=== PATIENT | female | born 1990 | race American Indian/Alaskan Native ===

== ENCOUNTER 2020-08-15 14:47 | Observation (INO) | payer OTHER ==
[2020-08-15 16:13] LABS: Hemoglobin 11.3 gm/dl (10.1-14.3); Mean Corpuscular HGB Conc 34 % (30-34); Mean Corpuscular Volume 93 fl (79-97); Platelet Count 185 K/mm3 (140-440); Red Blood Count 3.55 M/mm3 (3.65-5.03); Red Cell Distribution Width 14.5 % (13.2-15.2)
[2020-08-15 16:23] LABS: Bilirubin,Urine NEG (Negative); Blood,Urine NEG (Negative); Color,Urine Colorless (Yellow); Protein,Urine <15 mg/dL mg/dL (Negative); Urobilinogen,Urine < 2.0 mg/dL (<2.0)
[2020-08-15 16:24] LABS: Alanine Aminotransferase 21 units/L (7-56); Uric Acid 3.5 mg/dL (3.5-7.6)
[2020-08-15 16:28] LABS: RBC,Urine < 1.0 /HPF (0.0-6.0); WBC,Urine < 1.0 /HPF (0.0-6.0)
[2020-08-15] MEDS ORDERED: SENNOSIDES/DOCUSATE SODIUM 8.6/50 MG TAB PO PRN (17:58)
[2020-08-15] MEDS ORDERED: SODIUM CHLORIDE NASAL SPRAY 44ML NS PRN (17:58)
[2020-08-15] MEDS ORDERED: ACETAMINOPHEN 325 MG TAB PO PRN (17:58)
[2020-08-15] MEDS ORDERED: guaiFENesin DM 200/20 MG ORAL LIQD 10 ML PO PRN (17:58)
[2020-08-15] MEDS ORDERED: ALUM-MAG HYDROXIDE-SIMETHICONE 200-200-20MG/5ML ORAL LIQD 30 ML PO PRN (17:58)
[2020-08-15] MEDS ORDERED: ONDANSETRON 4 MG/2 ML INJ IV PRN (17:58)
[2020-08-15] MEDS ORDERED: MAGNESIUM HYDROXIDE (MOM) ORAL LIQD UDC PO PRN (17:58)
[2020-08-15] MEDS ORDERED: diphenhydrAMINE 25 MG CAP PO PRN (17:58)
[2020-08-15] MEDS ORDERED: SIMETHICONE 80 MG CHEW TAB PO PRN (17:58)
[2020-08-15] MEDS ORDERED: DOCUSATE SODIUM 100 MG CAP PO PRN (17:58)
[2020-08-15] MEDS ORDERED: WITCH HAZEL/ GLYCERIN PAD TP PRN (17:58)
[2020-08-15] MEDS ORDERED: PSEUDOEPHEDRINE 30 MG TAB PO PRN (17:58)
[2020-08-15] MEDS ORDERED: MAGNESIUM SULFATE 4 GM/100 ML BAG IV ONE (18:08)
--- NOTE | 2020-08-15 18:15 | Event Note ---
Date: 08/15/20 29 yo G1 at 25w5d with PNC at [facility] c/b IUGR 1% (seen by [facility] 08/12/20) presenting with COHN x 2 weeks, +2 edema, 7# weight gain in 2 weeks with elevated BPs to 158/83 and 170/100 in clinic. BPs elevated in triage to 160s, now currently in 140-150s. COHN resolved in triage. Resting comfortably. PIH labs wnl. --Admit for OBS --Monitor vitals --Betamethasone q24H x 2 --24H TP --Start labetolol 100mg BID, IV antihypertensive prn severe range BPs --Mag x 24H for neuroprotection --Needs AM [facility] consult --OB sono ordered --Needs NICU consult in indication for delivery
[2020-08-15] MEDS ORDERED: hydrALAZINE 20 MG/1 ML INJ IV PRN (18:19)
[2020-08-15] MEDS ORDERED: BETAMET ACET/BETAMET NA PH 6 MG/ML INJ 5 ML MDV IM SCH (18:30)
[2020-08-15] MEDS ORDERED: MAGNESIUM SULFATE 40GM/1000ML 40 GM/1,000 ML BAG IV SCH (19:00)
[2020-08-15] MEDS: LACTATED RINGERS 1,000 ML IV SCH (19:26)
--- NOTE | 2020-08-15 19:36 | Ultrasound Report ---
ULTRASOUND OBSTETRIC INDICATION / CLINICAL INFORMATION: 25w5d with elevated BPs. Clinical Gestational Age (GA): 25.5 weeks.days TECHNIQUE: Transabdominal. COMPARISON: None available. FINDINGS: There is a single intrauterine . Biparietal Diameter = 6.09 cm = 24.5 weeks.days Head Circumference = 22.78 cm = 24.6 weeks.days Abdominal Circumference = 19.16 cm = 23.6 weeks.days Femur Length = 4.68 cm = 25.6 weeks.days Average Ultrasound Age (AUA) = 24.5 weeks.days Heart Rate: 166 beats per minute. Estimated Weight in grams (if calculated): 721 Placenta: anterior, grade 1 and free of the os. Amniotic Fluid Volume: normal Amniotic Fluid Index (CIERRA) in cm (if calculated): 8.3. IMPRESSION: 1. Single, living intrauterine with estimated sonographic age of 24.5 weeks.days 2. No significant sonographic abnormality. BIOPHYSICAL PROFILE INDICATION: Elevated blood pressure COMPARISON: None FINDINGS: breathing movement: 2/2 movement: 2/2 posture and tone: 2/2 Qualitative amniotic fluid volume: 2/2 IMPRESSION: Total score for biophysical profile is 8/8 heart rate is 166 bpm Signer Name: Burak Peng MD Signed: 08/15/2020 7:31 PM Workstation Name: [employer]
--- NOTE | 2020-08-16 08:10 | History and Physical Report ---
History of Present Illness Date of examination: 08/16/20 Date of admission: 08/15/20 17:58 Chief complaint: "Sent to hosp by my doctor because my b/p is too high" History of present illness: 29 y/o female @ 25.6 wks was sent to [facility] by her provider for an evaluation of elevated b/ps and COHN x 2 wks. Pt denied COHN, LOF,or VB on admission, but admitted to active . She initiated her pnc at [facility] at 17.2 wks. She was being co managed by [facility] r/t an abnormal quad screen for down syndrome and IUGR 1%. The pt refused an amnio and NIPT screening. Neg surg/social/family hx. Pt was admitted to L&D for further monitoring. Labs: A neg HbsAg- neg HIV- neg RPR/VDRL- neg Rubella- I hBG 11.2 Past History Past Medical History: hypertension Past Surgical History: no surgical history Family/Genetic History: none Social history: - Obstetrical History Expected Date of Delivery: 11/23/20 Actual Gestation: 25 Week(s) 6 Day(s) : 1 Para: 0 Medications and Allergies Allergies Allergy/AdvReac Type Severity Reaction Status Date / Time No Known Allergies Allergy Unverified 08/15/20 15:32 Active Meds: Active Medications Acetaminophen (Acetaminophen 325 Mg Tab) 650 mg PO Q4H PRN PRN Reason: Pain MILD(1-3)/Fever >100.5/COHN Last Admin: 08/16/20 06:35 Dose: 650 mg Documented by: Al Hydrox/Mg Hydrox/Simethicone (Alum-Mag Hydroxide-Simethicone [id number]/5ml Oral Liqd 30 Ml) 30 ml PO Q6H PRN PRN Reason: Indigestion Betamethasone Acet/Betameth SodPhos (Betamet Acet/Betamet Na Ph 6 Mg/Ml Inj 5 Ml Mdv) 12 mg IM Q24H MILADY Stop: 08/16/20 18:31 Last Admin: 08/15/20 19:59 Dose: 12 mg Documented by: Diphenhydramine HCl (Diphenhydramine 25 Mg Cap) 25 mg PO Q6H PRN PRN Reason: Itching Docusate Sodium (Docusate Sodium 100 Mg Cap) 100 mg PO Q12H PRN PRN Reason: Constipation Guaifenesin (Guaifenesin Dm 200/20 Mg Oral Liqd 10 Ml) 10 ml PO Q6H PRN PRN Reason: Cough Hydralazine HCl (Hydralazine 20 Mg/1 Ml Inj) 5 mg IV Q30MIN PRN PRN Reason: hypertension Magnesium Sulfate (Magnesium Sulfate 40gm/1000ml) 40 gm in 1,000 mls @ 50 mls/hr IV DIRECT [facility] Last Admin: 08/15/20 19:49 Dose: 2 gm/hr, 50 mls/hr Documented by: Lactated Ringer's (Lactated Ringers) 1,000 mls @ 75 mls/hr IV DIRECT [facility] Last Admin: 08/15/20 19:26 Dose: 75 mls/hr Documented by: Labetalol HCl (Labetalol 100 Mg Tab) 100 mg PO BID [facility] Last Admin: 08/15/20 21:50 Dose: 100 mg Documented by: Magnesium Hydroxide (Magnesium Hydroxide (Mom) Oral Liqd Udc) 30 ml PO QHS PRN PRN Reason: Laxative Effect Multivitamins/Iron/Calcium ( Hus10-Ck Fumarate-Folic Acid Vit Tab) 1 each PO QDAY [facility] Ondansetron HCl (Ondansetron 4 Mg/2 Ml Inj) 4 mg IV Q6H PRN PRN Reason: Nausea And Vomiting Pseudoephedrine HCl (Pseudoephedrine 30 Mg Tab) 30 mg PO Q4H PRN PRN Reason: Nasal Congestion Senna/Docusate Sodium (Sennosides/Docusate Sodium 8.6/50 Mg Tab) 2 tab PO Q12H PRN PRN Reason: Laxative Effect Simethicone (Simethicone 80 Mg Chew Tab) 80 mg PO Q6H PRN PRN Reason: Gas pain Sodium Chloride (Sodium Chloride Nasal [place] 44ml) 2 spray NS Q4H PRN PRN Reason: Congestion Witch Yadira/Glycerin (Witch Yadira/ Glycerin Pad) 1 each TP PRN PRN PRN Reason: Hemorrhoids Review of Systems All systems: negative Eyes: deferred Ears, nose, mouth and throat: deferred Breasts: normal Genitourinary: normal appearance Rectal Exam: deferred - Vital Signs Vital signs: Vital Signs Pulse BP 85 167/91 08/15/20 15:13 08/15/20 15:13 Temp Pulse Resp BP Pulse Ox 98.3 F 88 16 143/84 100 08/16/20 07:39 08/16/20 07:47 08/16/20 07:39 08/16/20 07:39 08/16/20 07:47 - Physical Exam Breasts: Positive: normal Abdomen: Positive: normal appearance, soft, other (GRAVID) Genitourinary (Female): Positive: normal external genitalia, normal perenium Vulva: both: normal Vagina: Positive: normal moisture Uterus: Positive: enlarged, normal contour, other (GRAVID) Adnexa: both: normal Anus/Rectum: Positive: normal perianal skin Extremities: Positive: normal - Obstetrical FHR: category 1 Uterine Contraction Monitor Mode: External Uterine Contraction Pattern: Absent Uterine Tone Measurement Phase: Resting Results Result Diagrams: 08/15/20 15:45 08/15/20 15:45 Abnormal lab results 08/15/20 08/15/20 08/15/20 Range/Units 15:40 15:45 15:45 RBC 3.55 L (3.65-5.03) M/mm3 Creatinine 0.4 L (0.6-1.2) mg/dL Magnesium (1.7-2.3) mg/dL Lactate Dehydrogenase 287 H (91-180) units/L Urine pH 8.0 H (5.0-7.0) Ur Specific [place] 1.001 L (1.003-1.030) 08/16/20 Range/Units 00:26 RBC (3.65-5.03) M/mm3 Creatinine (0.6-1.2) mg/dL Magnesium 5.20 H (1.7-2.3) mg/dL Lactate Dehydrogenase (91-180) units/L Urine pH (5.0-7.0) Ur Specific [place] (1.003-1.030) All other labs normal. Assessment and Plan A: IUP@ 25.6 wks IUGR @ 1% PIH, RH neg Quad screen pos for down syndrome P: Admit to L&D Continuous monitoring [facility] consult PI labs with 24 hr urine Start MgS04 and steroids Labetalol 100mg bid Will need rhogam at 28 wks and post del Expectant mtg
[2020-08-16] MEDS: PRENATAL VIT27-FE FUMARATE-FOLIC ACID VIT TAB PO SCH (09:41)
[2020-08-16] MEDS ORDERED: FLU VACC QUAD 2020-2021 (6 months +)/PF 60 0.5 ML SYRINGE IM ONE (12:00)
--- NOTE | 2020-08-16 14:36 | Consultation ---
History of Present Illness Consult date: 08/16/20 Requesting physician: KELSEY FERRER History of present illness: 29 y/o AA XIOMARA 11/23/20 EGA at 25 6/7 weeks sent in by OB for Elevated B's 158/83 in office - in L&D 160/101 and 160/90 Placed on Labetalol 100 BID - BP's now at 140's/80's - 141/83 at bedside Denies H/O CHTN Denies COHN's scotoma RUQ Pain or sig swelling Denies vag bleeding or contractions Steroids and Mg in Process Denies Med ds Denies Surg NKA No STC, No C/D/D Abd soft gravid no RUQ Pain Ext NT no edema DTR 07/15 no clonus Followed by [facility] for Abnormal Quad and FGR [facility] US 08/12/20 EFW at 566 grams 1% with AC at 1% and Cord Doppler S/D at 3.46 --------- [facility] 08/[facility]20 EFW at 721 grams 9% with BPP 8/8 and CIERRA at 8.3 cm --------- Labs 08/15/20 H/H at 11 Plts at 185 AST/ALT at Creat at .4 Past History Past Medical History: hypertension Past Surgical History: no surgical history Family/Genetic History: none - Obstetrical History : 1 Medications and Allergies Allergies Allergy/AdvReac Type Severity Reaction Status Date / Time No Known Allergies Allergy Unverified 08/15/20 15:32 Active Meds: Active Medications Acetaminophen (Acetaminophen 325 Mg Tab) 650 mg PO Q4H PRN PRN Reason: Pain MILD(1-3)/Fever >100.5/COHN Last Admin: 08/16/20 06:35 Dose: 650 mg Documented by: Al Hydrox/Mg Hydrox/Simethicone (Alum-Mag Hydroxide-Simethicone [phone]/5ml Oral Liqd 30 Ml) 30 ml PO Q6H PRN PRN Reason: Indigestion Betamethasone Acet/Betameth SodPhos (Betamet Acet/Betamet Na Ph 6 Mg/Ml Inj 5 Ml Mdv) 12 mg IM Q24H [facility] Stop: 08/16/20 18:31 Last Admin: 08/15/20 19:59 Dose: 12 mg Documented by: Diphenhydramine HCl (Diphenhydramine 25 Mg Cap) 25 mg PO Q6H PRN PRN Reason: Itching Docusate Sodium (Docusate Sodium 100 Mg Cap) 100 mg PO Q12H PRN PRN Reason: Constipation Guaifenesin (Guaifenesin Dm 200/20 Mg Oral Liqd 10 Ml) 10 ml PO Q6H PRN PRN Reason: Cough Hydralazine HCl (Hydralazine 20 Mg/1 Ml Inj) 5 mg IV Q30MIN PRN PRN Reason: hypertension Magnesium Sulfate (Magnesium Sulfate 40gm/1000ml) 40 gm in 1,000 mls @ 50 mls/hr IV DIRECT [facility] Last Admin: 08/15/20 19:49 Dose: 2 gm/hr, 50 mls/hr Documented by: Lactated Ringer's (Lactated Ringers) 1,000 mls @ 75 mls/hr IV DIRECT [facility] Last Admin: 08/15/20 19:26 Dose: 75 mls/hr Documented by: Labetalol HCl (Labetalol 100 Mg Tab) 100 mg PO BID [facility] Last Admin: 08/16/20 09:41 Dose: 100 mg Documented by: Magnesium Hydroxide (Magnesium Hydroxide (Mom) Oral Liqd Udc) 30 ml PO QHS PRN PRN Reason: Laxative Effect Multivitamins/Iron/Calcium ( [id number] Fumarate-Folic Acid Vit Tab) 1 each PO QDAY [facility] Last Admin: 08/16/20 09:41 Dose: 1 each Documented by: Ondansetron HCl (Ondansetron 4 Mg/2 Ml Inj) 4 mg IV Q6H PRN PRN Reason: Nausea And Vomiting Pseudoephedrine HCl (Pseudoephedrine 30 Mg Tab) 30 mg PO Q4H PRN PRN Reason: Nasal Congestion Senna/Docusate Sodium (Sennosides/Docusate Sodium 8.6/50 Mg Tab) 2 tab PO Q12H PRN PRN Reason: Laxative Effect Simethicone (Simethicone 80 Mg Chew Tab) 80 mg PO Q6H PRN PRN Reason: Gas pain Sodium Chloride (Sodium Chloride Nasal [place] 44ml) 2 spray NS Q4H PRN PRN Reason: Congestion Witch Yadira/Glycerin (Witch Yadira/ Glycerin Pad) 1 each TP PRN PRN PRN Reason: Hemorrhoids - Vital Signs Vital signs: Vital Signs Pulse BP 85 167/91 08/15/20 15:13 08/15/20 15:13 Temp Pulse Resp BP Pulse Ox 98.5 F 90 14 137/86 100 08/16/20 12:31 08/16/20 14:27 08/16/20 12:31 08/16/20 14:16 08/16/20 14:27 Results Result Diagrams: 08/15/20 15:45 08/15/20 15:45 Abnormal lab results 08/15/20 08/15/20 08/15/20 Range/Units 15:40 15:45 15:45 RBC 3.55 L (3.65-5.03) M/mm3 Creatinine 0.4 L (0.6-1.2) mg/dL Magnesium (1.7-2.3) mg/dL Lactate Dehydrogenase 287 H (91-180) units/L Urine pH 8.0 H (5.0-7.0) Ur Specific [place] 1.001 L (1.003-1.030) 08/16/20 08/16/20 Range/Units 00:26 07:14 RBC (3.65-5.03) M/mm3 Creatinine (0.6-1.2) mg/dL Magnesium 5.20 H 5.70 H (1.7-2.3) mg/dL Lactate Dehydrogenase (91-180) units/L Urine pH (5.0-7.0) Ur Specific [place] (1.003-1.030) All other labs normal. Assessment and Plan Impression: 1. Pereyra IUP at 25 6/7 weeks 2. Gest HTN R/O Preeclampsia 3. FGR ([facility] US 08/12/20 at 1% and [facility] US 08/15/20 at 9%) 4. BPP 8/8 5. Mildly Decreased CIERRA at 8.1 cm 6. Abnormal Quad Screen for DS -Declined Amnio and NIPT Recommendations 1. Steroids for FLM 2. 24 Hour Urine Prot in process 3. Labetalol 100 BID 4. BPP Twice per week with Cord Dopplers 5. EFW q 2 to 3 weeks 6. NICU consult if not done 7. Awaiting 24 Hour Urine results In the case of hypertensive urgency: 1. Treat with IV anti-hypertensives if blood pressures are consistently greater than 160 mmHg systolic or greater than 110 mmHg diastolic. 2. IV anti-hypertensive therapy should be tailored to the physiology. If HR > 90, treat with IV labetalol therapy. Administer Labetalol 20mg IVP x 1, wait 20 minutes and re-assess blood pressure. If patient is still hypertensive, administer Labetalol 40mg IVP x 1. Wait 20 minutes and re-assess blood pressure. If still hypertensive, can administer 80mg IVP. The maximum IV dose of labetalol in 24 hours is 240mg. If still hypertensive, the patient may require a different agent. 3. If HR < 70, treat with IV hydralazine therapy. Administer hydralazine 5 mg IVP x 1, wait 10 minutes and re-assess blood pressure. If patient is still hypertensive, administer hydralazine 10mg IVP x 1. Wait 10 minutes and re- assess blood pressure. Can repeat as needed. The maximum dose of hydralazine in 24 hours is 30-40mg If still hypertensive, the patient may require a different agent. Contraindication to continued expectant management, in which delivery is indicated, include the following: -Cerbrovascular disturbances unresponsive to medical management -Unrelenting right upper quadrant pain -Liver function tests greater than 2x the upper limit of normal -Thrombocytopenia <100,000/microL -Creatinine greater than 1.1 mg/dL -Eclampsia -Pulmonary edema -Hypertension requiring initiation of fast upward titration of oral agents or multiple pushes of IV anti-hypetensives unresponsive to therapy
[2020-08-16] MEDS ORDERED: BETAMET ACET/BETAMET NA PH 6 MG/ML INJ 5 ML MDV IM SCH (21:00)
[2020-08-16] MEDS: LACTATED RINGERS 1,000 ML IV SCH (22:06)
[2020-08-16 22:45] LABS: Creatinine,Urine 12.2 mg/dL (0.1-20.0); Total Volume,Urine 8000 ml
--- NOTE | 2020-08-17 08:45 | Progress Note ---
Subjective - Subjective Date of service: 08/17/20 Principal diagnosis: preeclampsia Interval history: 26 weeks, GHT with SI preeclampsia BP's stable on labetalol 100mg BID, has not has treatable series in 24 hours 24 hour urine protein 320(mild PE) BPP/EFW/Dopplers stable as of 08/16/20 with plan for biweekly testing(ordered for next 7 days, will need reorder 08/23/20) SP two doses of steroids with plan to d/c MGSO4 biweekly labs(will repeat tomorrow AM)(ordered for next 7 days, will need reorder 08/23/20) Maternal/ well being reassuring at bedside NICU consult Osito Lopez MD Objective - Vital Signs Vital Signs: Vital Signs - 12hr 08/16/20 08/16/20 08/16/20 20:47 20:52 20:57 Pulse Rate 86 91 H 96 H Blood Pressure O2 Sat by Pulse 99 100 99 Oximetry 08/16/20 08/16/20 08/16/20 21:02 21:07 21:12 Pulse Rate 89 93 H 86 Blood Pressure O2 Sat by Pulse 100 100 100 Oximetry 08/16/20 08/16/20 08/16/20 21:16 21:17 21:22 Pulse Rate 87 93 H 94 H Blood Pressure 142/83 O2 Sat by Pulse 99 100 Oximetry 08/16/20 08/16/20 08/16/20 21:27 21:32 21:37 Pulse Rate 91 H 91 H 90 Blood Pressure O2 Sat by Pulse 100 100 100 Oximetry 08/16/20 08/16/20 08/16/20 21:42 21:47 21:52 Pulse Rate 88 85 88 Blood Pressure O2 Sat by Pulse 99 99 99 Oximetry 08/16/20 08/16/20 08/16/20 21:57 22:02 22:04 Pulse Rate 88 86 89 Blood Pressure 142/87 O2 Sat by Pulse 99 98 Oximetry 08/16/20 08/16/20 08/16/20 22:07 22:12 22:16 Pulse Rate 93 H 101 H 90 Blood Pressure 154/92 O2 Sat by Pulse 100 100 Oximetry 08/16/20 08/16/20 08/16/20 22:17 22:22 22:27 Pulse Rate 90 98 H 91 H Blood Pressure O2 Sat by Pulse 100 100 100 Oximetry 08/16/20 08/16/20 08/16/20 22:32 22:37 22:42 Pulse Rate 87 93 H 102 H Blood Pressure O2 Sat by Pulse 100 100 99 Oximetry 08/16/20 08/16/20 08/16/20 22:47 22:52 22:57 Pulse Rate 88 86 89 Blood Pressure O2 Sat by Pulse 98 98 99 Oximetry 08/16/20 08/16/20 08/16/20 23:02 23:07 23:12 Pulse Rate 83 86 85 Blood Pressure O2 Sat by Pulse 98 99 99 Oximetry 08/16/20 08/16/20 08/16/20 23:16 23:17 23:20 Pulse Rate 83 91 H 76 Blood Pressure 138/84 O2 Sat by Pulse 99 89 Oximetry 08/16/20 08/16/20 08/16/20 23:25 23:41 23:43 Pulse Rate 97 H Blood Pressure O2 Sat by Pulse 82 L 87 81 L Oximetry 08/16/20 08/16/20 08/16/20 23:48 23:53 23:58 Pulse Rate 84 87 86 Blood Pressure O2 Sat by Pulse 99 100 100 Oximetry 08/17/20 08/17/20 08/17/20 00:03 00:08 00:13 Pulse Rate 82 87 89 Blood Pressure O2 Sat by Pulse 100 99 99 Oximetry 08/17/20 08/17/20 08/17/20 00:16 00:18 00:23 Pulse Rate 86 86 85 Blood Pressure 139/85 O2 Sat by Pulse 99 100 Oximetry 08/17/20 08/17/20 08/17/20 00:28 00:33 00:38 Pulse Rate 95 H 86 90 Blood Pressure O2 Sat by Pulse 99 100 100 Oximetry 08/17/20 08/17/20 08/17/20 00:43 00:48 00:53 Pulse Rate 91 H 87 82 Blood Pressure O2 Sat by Pulse 100 99 100 Oximetry 08/17/20 08/17/20 08/17/20 00:58 01:03 01:08 Pulse Rate 86 83 84 Blood Pressure O2 Sat by Pulse 99 99 99 Oximetry 08/17/20 08/17/20 08/17/20 01:13 01:16 01:18 Pulse Rate 82 80 83 Blood Pressure 132/78 O2 Sat by Pulse 99 99 Oximetry 08/17/20 08/17/2008/17/21 01:23 01:28 01:33 Pulse Rate 83 86 88 Blood Pressure O2 Sat by Pulse 99 99 99 Oximetry 08/17/20 08/17/20 08/17/20 01:38 01:43 01:48 Pulse Rate 86 88 86 Blood Pressure O2 Sat by Pulse 99 99 99 Oximetry 08/17/20 08/17/20 08/17/20 01:53 01:58 02:03 Pulse Rate 86 88 89 Blood Pressure O2 Sat by Pulse 99 99 99 Oximetry 08/17/20 08/17/20 08/17/20 02:08 02:13 02:16 Pulse Rate 85 87 90 Blood Pressure 138/81 O2 Sat by Pulse 99 99 Oximetry 08/17/20 08/17/20 08/17/20 02:18 02:23 02:28 Pulse Rate 85 82 85 Blood Pressure O2 Sat by Pulse 99 100 100 Oximetry 08/17/20 08/17/20 08/17/20 02:33 02:38 02:43 Pulse Rate 84 90 86 Blood Pressure O2 Sat by Pulse 100 100 99 Oximetry 08/17/20 08/17/20 08/17/20 02:48 02:53 02:58 Pulse Rate 83 80 81 Blood Pressure O2 Sat by Pulse 99 100 100 Oximetry 08/17/20 08/17/20 08/17/20 03:03 03:09 03:13 Pulse Rate 82 84 83 Blood Pressure O2 Sat by Pulse 100 99 100 Oximetry 08/17/20 08/17/20 08/17/20 03:16 03:19 03:24 Pulse Rate 84 94 H 88 Blood Pressure 146/86 O2 Sat by Pulse 100 100 Oximetry 08/17/20 08/17/20 08/17/20 03:29 03:34 03:39 Pulse Rate 84 81 81 Blood Pressure O2 Sat by Pulse 100 100 100 Oximetry 08/17/20 08/17/20 08/17/20 03:44 03:49 03:54 Pulse Rate 82 78 86 Blood Pressure O2 Sat by Pulse 100 100 100 Oximetry 08/17/20 08/17/20 08/17/20 03:58 04:04 04:08 Pulse Rate 80 83 77 Blood Pressure O2 Sat by Pulse 100 100 100 Oximetry 08/17/20 08/17/20 08/17/20 04:13 04:16 04:18 Pulse Rate 78 74 78 Blood Pressure 142/85 O2 Sat by Pulse 99 99 Oximetry 08/17/20 08/17/20 08/17/20 04:24 04:29 04:34 Pulse Rate 80 78 77 Blood Pressure O2 Sat by Pulse 99 100 99 Oximetry 08/17/20 08/17/20 08/17/20 04:39 04:43 04:49 Pulse Rate 77 79 74 Blood Pressure O2 Sat by Pulse 99 99 99 Oximetry 08/17/20 08/17/20 08/17/20 04:54 04:59 05:04 Pulse Rate 88 82 82 Blood Pressure O2 Sat by Pulse 99 100 99 Oximetry 08/17/20 08/17/20 08/17/20 05:09 05:14 05:16 Pulse Rate 79 87 75 Blood Pressure 141/86 O2 Sat by Pulse 100 99 Oximetry 08/17/20 08/17/20 08/17/20 05:19 05:24 05:28 Pulse Rate 80 72 75 Blood Pressure O2 Sat by Pulse 99 99 99 Oximetry 08/17/20 08/17/20 08/17/20 05:34 05:37 05:39 Pulse Rate 78 77 76 Blood Pressure O2 Sat by Pulse 99 94 99 Oximetry 08/17/20 08/17/20 08/17/20 05:44 05:49 05:54 Pulse Rate 80 79 79 Blood Pressure O2 Sat by Pulse 100 99 100 Oximetry 08/17/20 08/17/20 08/17/20 05:59 06:04 06:09 Pulse Rate 76 77 78 Blood Pressure O2 Sat by Pulse 99 99 100 Oximetry 08/17/20 08/17/20 08/17/20 06:14 06:16 06:19 Pulse Rate 74 75 76 Blood Pressure 138/78 O2 Sat by Pulse 99 99 Oximetry 08/17/20 08/17/20 08/17/20 06:24 06:29 06:34 Pulse Rate 79 86 75 Blood Pressure O2 Sat by Pulse 100 99 100 Oximetry 08/17/20 08/17/20 08/17/20 06:38 06:44 06:49 Pulse Rate 78 79 82 Blood Pressure O2 Sat by Pulse 100 100 100 Oximetry 08/17/20 08/17/20 08/17/20 06:53 06:59 07:04 Pulse Rate 88 77 86 Blood Pressure O2 Sat by Pulse 100 100 100 Oximetry 08/17/20 08/17/20 08/17/20 07:09 07:14 07:16 Pulse Rate 83 76 76 Blood Pressure 141/87 O2 Sat by Pulse 100 100 Oximetry 08/17/20 08/17/20 08/17/20 07:19 07:24 07:29 Pulse Rate 83 80 78 Blood Pressure O2 Sat by Pulse 100 100 100 Oximetry 08/17/20 08/17/20 08/17/20 07:34 07:39 07:44 Pulse Rate 86 77 90 Blood Pressure O2 Sat by Pulse 100 100 100 Oximetry 08/17/20 08/17/20 08/17/20 07:49 07:54 07:59 Pulse Rate 82 85 82 Blood Pressure O2 Sat by Pulse 100 100 100 Oximetry 08/17/20 08/17/20 08/17/20 08:04 08:09 08:14 Pulse Rate 84 72 76 Blood Pressure O2 Sat by Pulse 100 99 100 Oximetry 08/17/20 08/17/20 08/17/20 08:17 08:19 08:24 Pulse Rate 75 88 84 Blood Pressure 137/82 O2 Sat by Pulse 100 100 Oximetry 08/17/20 08/17/20 08/17/20 08:29 08:34 08:39 Pulse Rate 93 H 86 97 H Blood Pressure O2 Sat by Pulse 100 100 99 Oximetry 08/17/20 08:44 Pulse Rate 111 H Blood Pressure O2 Sat by Pulse 98 Oximetry - Labs Labs: Abnormal Labs 08/15/20 08/15/20 08/15/20 15:40 15:45 15:45 RBC 3.55 L Creatinine 0.4 L Magnesium Lactate Dehydrogenase 287 H Urine pH 8.0 H Ur Specific [place] 1.001 L Ur Total Protein 24 Hr Urine Total Protein 08/16/20 08/16/20 08/16/20 00:26 07:14 15:04 RBC Creatinine Magnesium 5.20 H 5.70 H 5.90 H Lactate Dehydrogenase Urine pH Ur Specific [place] Ur Total Protein 24 Hr Urine Total Protein 08/16/20 08/16/20 20:03 Unknown RBC Creatinine Magnesium 5.70 H Lactate Dehydrogenase Urine pH Ur Specific [place] Ur Total Protein 24 Hr 320.00 H Urine Total Protein < 4 L Laboratory Results - last 24 hr 08/16/20 08/16/20 08/16/20 15:04 20:03 Unknown Magnesium 5.90 H 5.70 H Urine Total Volume 8000 Urine Creatinine 12.2 Ur Creatinine 24 Hour 1.0 Ur Total Protein 24 Hr 320.00 H Urine Total Protein < 4 L
[2020-08-17] MEDS: PRENATAL VIT27-FE FUMARATE-FOLIC ACID VIT TAB PO SCH (09:14)
[2020-08-17 13:43] VITALS: BP 163/88
== END 2020-08-17 13:46 | disposition home or self-care (01) ==
LOC: TRG 14:47 → APU 14:51 → LD 17:58 → TRG 18:16
PROVIDERS: ADMIT Obstetrics & Gynecology; ATTEND Obstetrics & Gynecology
DX: O10.912 Unspecified pre-existing hypertension complicating pregnancy, second trimester (principal); O36.5920 Maternal care for other known or suspected poor fetal growth, second trimester, not applicable or unspecified; O26.892 Other specified pregnancy related conditions, second trimester; R51.9 Headache, unspecified; Z3A.25 25 weeks gestation of pregnancy
CPT/HCPCS: 36415; 76816; 76819; 81001; 82565; 82570; 83615; 83735; 84156; 84450; 84460; 84550; 85027; 96365; 96366; 96372; G0378; J0702; J3475; J7120; 76810